=== PATIENT | female | born 1995 | race Caucasian/White ===

== ENCOUNTER 2018-07-21 02:24 | Emergency (ER) | payer SELFPAY ==
[2018-07-21 02:32] VITALS: BP 126/76
[2018-07-21] MEDS ORDERED: MORPHINE SULFATE 10 MG/ML INJ IV ONE (03:09)
[2018-07-21] MEDS ORDERED: NORMAL SALINE 1000 ML 1,000 ML IV ONE (03:09)
[2018-07-21] MEDS ORDERED: ONDANSETRON HCL INJ/PF 4 MG/2 ML SDV IV ONE (03:10)
[2018-07-21 03:35] LABS: APPEARANCE,URINE CLOUDY; BILIRUBIN,URINE NEGATIVE (NEGATIVE); COLOR,URINE YELLOW; GLUCOSE, URINE NEGATIVE (NEGATIVE); KETONES,URINE NEGATIVE (NEGATIVE); LEUKOCYTE ESTERASE,URINE SMALL (NEGATIVE); NITRITE,URINE NEGATIVE (NEGATIVE); PROTEIN,URINE NEGATIVE (NEGATIVE); URINE SPECIFIC GRAVITY 1.033
[2018-07-21 04:07] LABS: ABSOLUTE BASOPHILS # (AUTO) 0.1 10^3/uL (0.0-0.2); ABSOLUTE EOSINOPHILS # (AUTO) 0.1 10^3/uL (0.0-0.6); ABSOLUTE LYMPHOCYTES (AUTO) 4.7 10^3/uL (0.5-4.7); ABSOLUTE MONOCYTES (AUTO) 0.6 10^3/uL (0.1-1.4); ABSOLUTE NEUT (AUTO) 4.2 10^3/uL (1.7-8.2); BASOPHILS % (AUTO) 0.6 % (0-2); EOSINOPHILS % (AUTO) 1.1 % (0-6); HEMATOCRIT 38.5 % (36.0-47.0); HEMOGLOBIN 13.1 g/dL (12.0-15.5); LYMPHOCYTES % (AUTO) 48.3 % (13-45); MEAN CORPUSCULAR HEMOGLOBIN 29.8 pg (27.0-33.4); MEAN CORPUSCULAR HGB CONC 34.1 g/dL (32.0-36.0); MEAN CORPUSCULAR VOLUME 87 fl (80-97); MONOCYTES % (AUTO) 6.7 % (3-13); PLATELET COUNT 278 10^3/uL (150-450); RED CELL DISTRIBUTION WIDTH 14.3 % (11.5-14.0); SEGMENTED NEUTROPHILS % (AUTO) 43.3 % (42-78); TOTAL CELLS COUNTED % (AUTO) 100 %; WHITE BLOOD COUNT 9.6 10^3/uL (4.0-10.5)
[2018-07-21 04:19] LABS: ALANINE AMINOTRANSFERASE 19 U/L (9-52); ALBUMIN 4.5 g/dL (3.5-5.0); ALKALINE PHOSPHATASE 73 U/L (38-126); ANION GAP 11 (5-19); ASPARTATE AMINO TRANSFERASE 32 U/L (14-36); BILIRUBIN,DIRECT 0.4 mg/dL (0.0-0.4); BILIRUBIN,TOTAL 0.5 mg/dL (0.2-1.3); BLOOD UREA NITROGEN 11 mg/dL (7-20); CALCIUM 9.4 mg/dL (8.4-10.2); CARBON DIOXIDE 22 mmol/L (22-30); CHLORIDE 110 mmol/L (98-107); GLUCOSE 81 mg/dL (75-110); POTASSIUM 3.5 mmol/L (3.6-5.0); SODIUM 143.2 mmol/L (137-145)
--- NOTE | 2018-07-21 08:27 | RADIOLOGY REPORT (SQ) ---
CLINICAL DATA: 23-year-old female with CVA tenderness, dysuria and hematuria TECHNICAL DATA: Axial CT imaging of the abdomen and pelvis was performed. Sagittal and coronal reconstructed images were then performed. The CT study is performed according to ALARA (as low as reasonably achievable) or ALARA/IMAGE GENTLY, with automatic adjustment of mA and/or kV according to patient size. Comparison: Prior CT abdomen and pelvis performed on 06/16/2016. FINDINGS: Lung bases: The lung bases are clear. Liver:The liver is normal in size and configuration. No focal hepatic abnormalities are appreciated on this unenhanced scan. Liver attenuation is within normal limits. Spleen:The spleen is normal is size, configuration and attenuation. No focal splenic abnormalities are appreciated on this unenhanced scan. Gallbladder and bile duct: The gallbladder is well distended and unremarkable. There is no biliary ductal dilatation. Pancreas: The pancreas is grossly normal in size and configuration. Adrenal Glands:The adrenal glands are normal in size and configuration. Kidneys:The kidneys are normal in size and configuration. There is no evidence of hydronephrosis. There is no evidence of nephrolithiasis. No focal renal abnormalities are identified. Stomach:The stomach is grossly normal. There is no definite hiatal hernia. Bowel:The bowel gas pattern is non specific and non obstructive. Appendix: The appendix is normal. Free air:There is no evidence of free air. Free fluid: There is no evidence of free fluid. Vasculature: The aorta is normal in caliber and contour. The inferior vena cava is grossly unremarkable. Lymphadenopathy: No pathologic lymphadenopathy is identified. Bladder: The bladder is incompletely distended Reproductive: The uterus is grossly within normal limits. Bones: No acute osseous abnormalities are identified. Soft tissues: No focal soft tissue abnormalities are identified. IMPRESSION: 1. Normal unenhanced CT scan of the abdomen and pelvis. There is no evidence of urinary tract calcification or urinary tract obstruction. 2. No significant change when compared to the prior study.
== END 2018-07-21 06:36 | disposition home or self-care (01) ==
LOC: ER 02:24
DX: Z53.21 Procedure and treatment not carried out due to patient leaving prior to being seen by health care provider (principal)
CPT/HCPCS: 36415; 76380; 80053; 81001; 81025; 83690; 85025; 96361; 96374; 96375; 99284; J2270; J2405; J7030

== ENCOUNTER → 2018-09-23 | Outpatient (CLI) | payer SELFPAY ==
--- NOTE | 2018-09-23 16:08 | RADIOLOGY REPORT (SQ) ---
EXAM DESCRIPTION: U/S [id number] TRNABD 1GES W/ODOP COMPLETED DATE/TIME: 09/23/2018 1:28 pm REASON FOR STUDY: ENCTR FOR SUPERVISION OF OTHER NORMAL , 1ST TRIMESTER (Z34.81) Z34.81 EN COUNTER FOR SUPRVSN OF NORMAL , FIRST TRIM COMPARISON: None. TECHNIQUE: Transabdominal static and realtime grayscale images acquired of the pelvis. Additional se lected spectral and color Doppler images recorded. All images stored on PACs. bHCG: None available CLINICAL DATES: Last menses 07/15/2018 LIMITATIONS: None. FINDINGS: FETUS: Single Living intrauterine . ULTRASOUND EGA: 10 weeks 0 days ULTRASOUND RAN: 04/21/2019 EFW: Not applicable less than 20 weeks. CRL: 3.2 cm FHR: 173 beats per minute. SURVEY: No visualized anomalies. AMNIOTIC FLUID: Adequate amount. PLACENTA: Not yet developed due to early gestation. SUBCHORIONIC BLEED: No SIZE OF BLEED: Not applicable. UTERUS: No masses. No anomalies. 10 cm in greatest length. CERVICAL LENGTH: 3 cm Closed. RIGHT ADNEXA: Not visualized due to adnexal bowel gas and limited acoustic window LEFT ADNEXA: Not visualized due to adnexal bowel gas and limited acoustic window. FREE FLUID: None. OTHER: No other significant finding. IMPRESSION: LIVING INTRAUTERINE . EGA 10 weeks 0 days Trimester of : First - 0 to 13 weeks. TECHNICAL DOCUMENTATION: JOB ID: [id number] [employer]- All Rights Reserved Reading location - IP/workstation name: [email or web address]
== END ==
LOC: WI 12:33
PROVIDERS: ATTEND Nurse Practitioner
DX: Z34.81 Encounter for supervision of other normal pregnancy, first trimester (principal)
CPT/HCPCS: 76801

== ENCOUNTER 2018-10-23 20:02 | Emergency (ER) | payer OTHER ==
[2018-10-23] MEDS ORDERED: NORMAL SALINE 1000 ML 1,000 ML IV ONE (20:54)
[2018-10-23 21:18] LABS: APPEARANCE,URINE CLOUDY; BILIRUBIN,URINE NEGATIVE (NEGATIVE); COLOR,URINE YELLOW; GLUCOSE, URINE NEGATIVE (NEGATIVE); KETONES,URINE NEGATIVE (NEGATIVE); LEUKOCYTE ESTERASE,URINE TRACE (NEGATIVE); NITRITE,URINE NEGATIVE (NEGATIVE); PROTEIN,URINE NEGATIVE (NEGATIVE); UROBILINOGEN,URINE NEGATIVE mg/dL (<2.0)
[2018-10-23 21:31] LABS: ABSOLUTE BASOPHILS # (AUTO) 0.1 10^3/uL (0.0-0.2); ABSOLUTE EOSINOPHILS # (AUTO) 0.1 10^3/uL (0.0-0.6); ABSOLUTE LYMPHOCYTES (AUTO) 3.3 10^3/uL (0.5-4.7); ABSOLUTE MONOCYTES (AUTO) 0.7 10^3/uL (0.1-1.4); BASOPHILS % (AUTO) 0.6 % (0-2); HEMATOCRIT 34.1 % (36.0-47.0); HEMOGLOBIN 11.8 g/dL (12.0-15.5); LYMPHOCYTES % (AUTO) 24.9 % (13-45); MEAN CORPUSCULAR HEMOGLOBIN 30.5 pg (27.0-33.4); MEAN CORPUSCULAR HGB CONC 34.7 g/dL (32.0-36.0); MEAN CORPUSCULAR VOLUME 88 fl (80-97); MONOCYTES % (AUTO) 5.5 % (3-13); PLATELET COUNT 249 10^3/uL (150-450); RED BLOOD COUNT 3.87 10^6/uL (3.72-5.28); RED CELL DISTRIBUTION WIDTH 15.1 % (11.5-14.0); TOTAL CELLS COUNTED % (AUTO) 100 %; WHITE BLOOD COUNT 13.2 10^3/uL (4.0-10.5)
[2018-10-23 21:47] LABS: ALANINE AMINOTRANSFERASE 26 U/L (9-52); ALBUMIN 3.8 g/dL (3.5-5.0); ALKALINE PHOSPHATASE 65 U/L (38-126); ANION GAP 15 (5-19); ASPARTATE AMINO TRANSFERASE 20 U/L (14-36); BILIRUBIN,DIRECT 0.2 mg/dL (0.0-0.4); BILIRUBIN,TOTAL 0.2 mg/dL (0.2-1.3); BLOOD UREA NITROGEN 8 mg/dL (7-20); CALCIUM 9.7 mg/dL (8.4-10.2); CARBON DIOXIDE 17 mmol/L (22-30); CHLORIDE 108 mmol/L (98-107); GLUCOSE 102 mg/dL (75-110); POTASSIUM 3.9 mmol/L (3.6-5.0); SODIUM 139.5 mmol/L (137-145); TOTAL PROTEIN 6.9 g/dL (6.3-8.2)
[2018-10-23] MEDS ORDERED: MECLIZINE HCL 25 MG TABLET PO ONE (22:03)
--- NOTE | 2018-10-23 22:14 | ER Document Report ---
ED GI/ - General Chief Complaint: Headache Stated Complaint: HEADACHE/EAR PAIN Time Seen by Provider: 10/23/18 20:40 Mode of Arrival: Ambulatory Information source: Patient Notes: Patient is a 23-year-old female who comes emergency room complaining of a new onset headache with popping in her ears congestion and room spinning. Patient states that started tonight just prior to coming to the ER when she went to get up from lying down and all of a sudden she felt a pop in her ears and then she had swimmy headed with the room spinning. She denies any history of congestion or runny nose for the past few weeks but has had a slight sniffle. She states she feels really dizzy and when she moves her head she gets nauseated. She does say the room does spin. Patient smoked up until approximately 14 weeks ago. That is when she found out she was . She actually had come into the emergency room because of abdominal pain and was discovered that she was at that time. This is her first and she is been having some slight difficulty with it. The difficulty lies in adjusting to being . She has not had any medical problems associated with as of yet. Patient states she drinks lots of water and that is about all she drinks. She is not been real hungry since having this dizziness set on her. TRAVEL OUTSIDE OF THE [place] IN LAST 30 DAYS: No - HPI Patient complains to provider of: . No: Abdominal pain, Dysuria, Flank pain Onset: Just prior to arrival Timing/Duration: Sudden Quality of pain: Fullness, Pressure Severity at maximum: Moderate Severity in ED: Moderate Pain Level: 3 Context: denies: Bad food, Lifting, Out of the country travel, Recent trauma Location: No: Chest pain, Low back Vaginal bleeding (Compared to normal period): None LMP: July 15, 2018 : 1 Para: 0 Abortions: 0 OB ultrasound done: Yes vitamins taken: Yes Sexual history: Active. denies: New partner, Multiple partners, STD exposure, control patch, control pills Associated symptoms: Dizzy. denies: Fever Exacerbated by: Denies Relieved by: Other - Turning head Similar symptoms previously: No Recently seen / treated by doctor: No - Related Data Allergies/Adverse Reactions: No Known Allergies Allergy (Verified 09/09/18 21:03) Past Medical History - General Information source: Patient - Social History Smoking Status: Former Smoker Cigarette use (# per day): No Chew tobacco use (# tins/day): No Smoking Education Provided: No Frequency of alcohol use: None Drug Abuse: None Family History: Reviewed & Not Pertinent Patient has suicidal ideation: No Patient has homicidal ideation: No Renal/ Medical History: Denies: Hx Peritoneal Dialysis Past Surgical History: Reports: Hx Adenoidectomy, Hx Orthopedic Surgery - right ankle - Immunizations Immunizations up to date: Yes Hx Diphtheria, Pertussis, Tetanus Vaccination: Yes Review of Systems - Review of Systems Constitutional: No symptoms reported EENT: Ear pain, Nose congestion, Nose discharge, Sinus pressure, Sinus discharge , Vertigo Cardiovascular: No symptoms reported Respiratory: No symptoms reported Gastrointestinal: No symptoms reported Genitourinary: No symptoms reported Female Genitourinary: See HPI, Musculoskeletal: No symptoms reported Skin: No symptoms reported Hematologic/Lymphatic: No symptoms reported Neurological/Psychological: Headaches -: Yes All other systems reviewed and negative Physical Exam - Vital signs Vitals: Temp Pulse Resp BP Pulse Ox 98.4 F 100 22 H 140/81 H 98 10/23/18 20:07 10/23/18 20:07 10/23/18 20:07 10/23/18 20:07 10/23/18 20:07 Interpretation: Hypertensive - Notes Notes: PHYSICAL EXAMINATION: GENERAL: Well-appearing, well-nourished and in no acute distress. HEAD: Atraumatic, normocephalic. EYES: Pupils equal round and reactive to light, extraocular movements intact, conjunctiva are normal. On secondary exam I had patient lie flat on the rney with her head extended off the back into my hands I occluded her ears and I rotated her head left right and up while she maintained focus on my nose. As I was rotating her right and left patient started to have an increase in horizontal fasciculations in the more dated the more pronounced it became when I had her set up and she could barely hold onto the railings because of the dizziness. She became excessively nauseated as well. I call this a positive tilt test and with a horizontal fasciculations and it kind of is indicative of vertigo. ENT: Nares patent, oropharynx clear without exudates. Slightly dry mucous membranes. NECK: Normal range of motion, supple without lymphadenopathy LUNGS: Breath sounds clear to auscultation bilaterally and equal. No wheezes rales or rhonchi. HEART: Regular rate and rhythm without murmurs ABDOMEN: Soft, nontender, nondistended abdomen. Female : deferred Musculoskeletal: Normal range of motion, no pitting or edema. No cyanosis. NEUROLOGICAL: Normal speech, normal gait. Normal sensory, motor exams PSYCH: Normal mood, normal affect. SKIN: Warm, Dry, normal turgor, no rashes or lesions noted. Course - Re-evaluation Re-evalutation: 10/23/18 22:22 Patient's orthostatics were not 100% positive although when she did go from laying down to standing up her heart rate jumped to 20 points but her blood pressure also went up. After receiving a liter of fluids she did feel 100 times better. I am treating her with meclizine which category B in . Patient has an appointment with her ATTORNEY LAW CLERK this coming Wednesday so in between now and then she is going to continue to take the meclizine 3 times a day. She is going to change her water to at least some smart water because she is drinking so much plain water she often has a hard time maintaining her potassium. - Vital Signs Vital signs: Temp Pulse Resp BP Pulse Ox 98.4 F 87 22 H 112/61 98 10/23/18 20:07 10/23/18 21:15 10/23/18 20:07 10/23/18 21:15 10/23/18 20:07 - Laboratory Result Diagrams: 10/23/18 21:24 10/23/18 21:24 Laboratory results interpreted by me: 10/23/18 10/23/18 10/23/18 21:05 21:24 21:24 WBC 13.2 H Hgb 11.8 L Hct 34.1 L RDW 15.1 H Absolute Neutrophils 9.0 H Chloride 108 H Carbon Dioxide 17 L Creatinine 0.42 L Ur Leukocyte Esterase TRACE H Discharge - Discharge Clinical Impression: Vertigo Qualifiers: Weeks of gestation: 14 weeks Qualified Code(s): Z3A.14 - 14 weeks gestation of Disposition: HOME, SELF-CARE Instructions: Headache ([facility]), Vertigo ([facility]) Additional Instructions: As we discussed I think you have an inner ear thing going on the primarily called vertigo. The medication you are taking should help alleviate that. There are other medications were given your current status I would rather just start with the meclizine. As we discussed increase your fluid intake but do not just drink plain water add some juices and there had smart water and there things to have some substance to them besides just plain water. No driving while you are having symptoms on medication. Technically you are not supposed to drive or work at [employer] until 1 week after you are off medication and the symptoms are gone. Should you have any concerns or problems between now and the time you follow-up with your ROOFING SUBCONTRACTOR return to ER for recheck. Prescriptions: Meclizine HCl [Antivert 25 mg Tablet] 25 mg PO TID PRN #30 tablet PRN Reason: Referrals: [facility] [NO LOCAL MD] - Follow up as needed
[2018-10-23 23:06] VITALS: BP 129/65
== END 2018-10-23 23:06 | disposition home or self-care (01) ==
LOC: ER 20:02
DX: O26.892 Other specified pregnancy related conditions, second trimester (principal); R42 Dizziness and giddiness; R51 Headache; H92.09 Otalgia, unspecified ear; R11.0 Nausea; Z87.891 Personal history of nicotine dependence; Z3A.14 14 weeks gestation of pregnancy
CPT/HCPCS: 99284; 96360; 36415; 85025; 80053; 81001; J7030

== ENCOUNTER 2018-12-12 13:05 | Outpatient (CLI) | payer SELFPAY ==
[2018-12-12 14:32] LABS: BACTERIA (WET MOUNT) 3+ BACTERIA SEEN; EPITHELIALS (WET MOUNT) 4+ EPITHELIALS SEEN; RBCS (WET MOUNT) RARE RBCS SEEN; T.VAGINALIS (WET MOUNT) NO TRICHOMONAS SEEN; WBCS (WET MOUNT) 3+ WBCS SEEN; YEAST (WET MOUNT) NO YEAST SEEN
[2018-12-12 15:31] LABS: APPEARANCE,URINE SLIGHTLY-CLOUDY; BILIRUBIN,URINE NEGATIVE (NEGATIVE); COLOR,URINE YELLOW; GLUCOSE, URINE NEGATIVE (NEGATIVE); KETONES,URINE NEGATIVE (NEGATIVE); LEUKOCYTE ESTERASE,URINE LARGE (NEGATIVE); NITRITE,URINE NEGATIVE (NEGATIVE); PROTEIN,URINE NEGATIVE (NEGATIVE); URINE SPECIFIC GRAVITY 1.012; UROBILINOGEN,URINE NEGATIVE mg/dL (<2.0)
[2018-12-12 15:55] LABS: CHLAM PCR NOT DETECTED (NOT DETECT); GON PCR NOT DETECTED (NOT DETECT)
--- NOTE | 2018-12-12 16:07 | RADIOLOGY REPORT (SQ) ---
EXAM DESCRIPTION: U/S OB LIMITED COMPLETED DATE/TIME: 12/12/2018 3:53 pm REASON FOR STUDY: abdominal pain,perineal pressure gestational age 21 weeks 5 days by dates COMPARISON: 09/23/2018 TECHNIQUE: Limited transabdominal grayscale ultrasound for evaluation of specific requested obstetri bunny parameters. LIMITATIONS: None. FINDINGS: CERVICAL LENGTH: 4.4 cm Closed. LVP: 6.5 cm. FHR: 141 beats per minute. PRESENTATION: Breech. PLACENTA: Anterior ANATOMY: Not assessed OTHER: Estimated body weight 535 g +/-70 9 g. ultrasound gestational age 22 weeks 4 days. Rossi mated date of delivery 04/13/2019 IMPRESSION: LIMITED OBSTETRICAL ULTRASOUND WITH MEASURED PARAMETERS DELINEATED ABOVE. Trimester of : Second trimester - 13 weeks 1 day to 27 weeks 6 days. TECHNICAL DOCUMENTATION: JOB ID: [id number] [employer]- All Rights Reserved Reading location - IP/workstation name: [email or web address]
[2018-12-12 16:15] LABS: URINE AMPHETAMINES SCREEN NEGATIVE
[2018-12-12 16:22] LABS: URINE BARBITURATES SCREEN NEGATIVE; URINE BENZODIAZEPINES SCREEN NEGATIVE
[2018-12-12 16:25] LABS: URINE COCAINE SCREEN NEGATIVE; URINE MARIJUANA (THC) SCREEN NEGATIVE; URINE METHADONE SCREEN NEGATIVE; URINE PHENCYCLIDINE SCREEN NEGATIVE
== END 2018-12-12 16:37 | disposition home or self-care (01) ==
LOC: LC 13:05
PROVIDERS: ATTEND Obstetrics & Gynecology
PROC: 4A1HXCZ Monitoring of Products of Conception, Cardiac Rate, External Approach (ICD-10-PCS; principal; 2018-12-12)
DX: O23.592 Infection of other part of genital tract in pregnancy, second trimester (principal); N76.0 Acute vaginitis; B96.89 Other specified bacterial agents as the cause of diseases classified elsewhere; Z3A.21 21 weeks gestation of pregnancy
CPT/HCPCS: 76815; 80307; 81001; 87210; 87491; 87591